=== PATIENT | female | born 2000 | race Caucasian/White ===

== ENCOUNTER 2023-03-28 19:00 | Outpatient (REF) | payer OTHER, SELFPAY ==
[2023-04-01 13:12] LABS: Age Gdln ACOG Testing Note (.); IGP, rfx Aptima HPV ASCU Note (.)
== END 2023-03-28 19:01 | disposition home or self-care (01) ==
LOC: LAB 19:00
PROVIDERS: Visit Provider Obstetrics & Gynecology
DX: Z12.4 Encounter for screening for malignant neoplasm of cervix (principal)
CPT/HCPCS: G0145

== ENCOUNTER 2024-04-09 18:59 | Outpatient (REF) | payer OTHER, SELFPAY ==
--- OUTSIDE RECORDS SUMMARY | 2024-04-09 19:11 | XMS_ITS | CCD ---
Author Organization [facility] Inform ion Partnership [facility] Care Team Providers Care Stamp Classifier Name Role Phone Belle Lopez Unavailable Unavailable NONE, XXXX Unavailable Unavailable Uziel Noe Unavailable Unavailable NONE, XXXX Unavailable Unavailable TMI, DR KHAN Admitting Unavailable TIM, DR KHAN Attending Unavailable TIM, DR KHAN Consulting Unavailable HEBER, PRAMOD Admitting Unavailable HEBER, PRAMOD Attending Unavailable HEBER, PRAMOD Consulting Unavailable HEBER, PRAMOD Admitting Unavailable HEBER, PRAMOD Attending Unavailable HEBER, PRAMOD Consulting Unavailable HEBER, PRAOMD Admitting Unavailable HEBER, PRAMOD Attending Unavailable HEBER, PRAMOD Consulting Unavailable IQRA GRIDER Attending Unavailable ERIN BLANK Attending Unavailable Clementina Marcial MD Primary Care Provider Medications Current Medications Medication Drug Class(es) Dates Sig (Normalized) Sig (Original) Ethinyl Estradiol / Ferrous fumarate / Norethindrone (3 sources) Estrogen Start: 03-28-2023 End: 06-18-2024 norethindrone-ethiny l estradiol (Ericka FE 05/13) 1-20 MG-MCG tablet Indications: Encounter for surveillance of contraceptive pills Take 1 tablet by mouth in the morning. 112 tablet 3 03/28/2023 06/18/2024 Active Problems Active Problems Problem Classification Problem Date Documented Date Episodic/Chronic Immunizations and screening for infectious disease (1 source) Encounter for screening for human papillomavirus (HPV); Translations: [ENC SCREENING HUMAN PAPILLOMAVIRUS] Onset: 03-24-2022 Episodic Other and unspecified benign neoplasm (2 sources) Melanocytic nevus of trunk; Translations: [Melanocytic nevi of trunk] 03-28-2024 Episodic Other circulatory disease (2 sources) Spider nevus; Translations: [Nevus, non-neoplastic] 03-28-2024 Episodic Other inflammatory condition of skin (2 sources) Prurigo nodularis; Translations: [Prurigo nodularis] 03-28-2024 Episodic Other screening for suspected conditions (not mental disorders or infectious disease) (4 sources) Encounter for screening for malignant neoplasm of cervix; Translations: [ENC SCREENING MALIG NEOPLASM CERV] Onset: 03-21-2022 Episodic Other skin disorders (2 sources) Lentiginosis; Translations: [Other melanin hyperpigmentation] 03-28-2024 Episodic Unclassified (3 sources) CONTACT W/AND (SUSP) EXPOS COVID-19; Translations: [CONTACT W/AND (SUSP) EXPOS COVID-19] Onset: 11-25-2021 Viral infection (1 source) COVID-19; Translations: [COVID-19] Onset: 11-09-2021 Past or Other Problems Problem Classification Problem Date Documented Da te Episodic/Chronic Unclassified (1 source) CONTACT W/AND (SUSP) EXPOS COVID-19; Translations: [CONTACT W/AND (SUSP) EXPOS COVID-19] Onset: 11-14-2021 Results Test Name Value Interpretation Reference Range Facility PAP ACOG PANEL 2: 21 to 29on 03-29-2022 . . [facility] Comment on above: Performed By: #### [id number] #### [facility] [address] [place] [address] Dr. Phu Jean Age Gdln ACOG Testing - [facility] Comment on above: Performed By: #### [id number] #### [facility] [address] [address] [address] Phu Jean DIAGNOSIS: Comment [facility] Comment on above: Result Comment: NEGA TIVE FOR INTRAEPITHELIAL LESION OR MALIGNANCY. Performed By: #### [id number] #### [facility] [address] [place] [address] Dr. Phu Jean Methodology: Comment [facility] Comment on above: Result Comment: This liquid based ThinPrep(R) pap test was screened with the use of an image guided system. Performed By: #### 4 [id number] #### [facility] [address] [place] [address] Dr. Phu eJan Note: Comment Normal [facility] Comment on above: Result Comment: The Pap smear is a screening test designed to aid in the detection of premalignant and malignant conditions of the uterine cervix. It is not a diagnostic procedure and should not be used as the sole means of detecting cervical cancer. Both false-positive and false-negative reports do occur. . Performed By: #### 4 [id number] #### [facility] [address] [place] [address] Dr. Phu Jean Performed by: Comment Normal [facility] Comment on above: Result Comment: Colleen Chang, Plastic Tool Maker Performed By: #### 4 [id number] #### [facility] [address] [place] [address] Dr. Phu Jean Reflex Criteria: Comment Normal [facility] Comment on above: Result Comment: The HPV DNA reflex criteria were not met with this specimen result therefore, no HPV testing was performed. . Performed By: #### 4 [id number] #### [facility] [address] [place] [address] Dr. Phu Jean Specimen adequacy: Comment [facility] Comment on above: Result Comment: Sati sfactory for evaluation. No endocervical component is identified. Performed By: #### 4 [id number] #### [facility] [address] [place] [address] Dr. Phu Jean SYMPTOMATIC COVID-19 ANTIGEN on 11-14-2021 EUA Statement SEE BELOW [facility] Comment on above: Result Comment: This test has not been FDA cleared or approved, but has been authorized by the FDA under an Emergency Use Authorization (EUA) for use by authorized laboratories certified under CLIA that meet the requirements to perform moderate or high complexity testing. This test has been authorized only for the detection of proteins from SARS-CoV-2, not for any other viruses or pathogens. The emergency use of this test is authorized for the duration of the declaration that circumstances exist justifying the authorization of emergency use of in vitro diagnostic tests for detection and/or diagnosis of Covid-19 under section 564(b)(1) of the Act, 21 U.S.C. 360bbb-3(b)(1), unless the declaration is terminated or authorization is revoked sooner. Performed By: #### C VDAGS #### [facility] [address] [place] [address] Dr. Phu Jean SARS-CoV-2 (COVID-19) RNA GIA+probe Ql (Unsp spec) Negative Normal NEGATIVE [facility] Comment on above: Performed By: #### C VDAGS #### [facility] [address] [place] [address] Dr. Phu Jean Covid-19 PCR ([facility])on 10-22 SARS-CoV-2 (COVID-19) RNA GIA+probe Ql (Unsp spec) Detected Critically abnormal NOT DETECTED [facility] Comment on above: Result Comment: This test is not yet approved or cleared by the [place] FDA. When there are no FDA-approved or cleared tests available, and other criteria are met, FDA can make tests available under an emergency access mechanism called an Emergency Use Authorization (EUA). The EUA for this test is supported by the Monotype Setter of Health and Human Service's declaration that circumstances exist to justify the emergency use of in vitro diagnostics for the detection and/or diagnosis of the virus that causes COVID-19. This EUA will remain in effect for the duration of the COVID-19 declaration justifying emergency of IVDs, unless it is terminated or revoked by the FDA (after which the test may no longer be used). Performed By: #### C VDTBH #### [facility] [address] [place] [address] Dr. Phu Jean QUANTIFERON TB GOLD PLUSon 0 07-29-2021 QuantiFERON Criteria Comment Normal [facility] Comment on above: Result Comment: The QuantiFERON-TB Gold Plus result is determined by subtracting the Nil value from either TB antigen (Ag) tube. The mitogen tube serves as a control for the test. Performed By: #### Q NTTB #### [facility] [address] [place] [address] Dr. Phu Jean QuantiFERON Incubation Incubation performed. Normal [facility] Comment on above: Performed By: #### Q NTTB #### [facility] [address] [address] [address] Phu Jean QuantiFERON Mitogen Value >10.00 Normal [facility] Comment on above: Performed By: #### Q NTTB #### [facility] [address] [place] [address] Dr. Phu Jean QuantiFERON Nil Value 0.08 IU/mL Normal [facility] Comment on above: Performed By: #### Q NTTB #### [facility] [address] [address] [address] Phu Jean QuantiFERON TB1 Ag Value 0.13 IU/mL Normal [facility] Comment on above: Performed By: #### Q NTTB #### [facility] [address] [place] [address] Dr. Phu Jean QuantiFERON TB2 Ag Value 0.10 IU/mL Normal [facility] Comment on above: Performed By: #### Q NTTB #### [facility] [address] [place] [address] Dr. Phu Jean QuantiFERON-TB Gold Plus Negative Normal Negative [facility] Comment on above: Result Comment: Chem iluminescence immunoassay methodology Performed By: #### Q NTTB #### [facility] [address] [place] [address] Dr. Phu Jean HEPATITIS B SURFACE ANTIBODY , QUANTon 07-28-2021 Hepatitis B Surf AB Quant <3.1 Critically low Immunity>9.9 [facility] Comment on above: Result Comment: Stat us of Immunity Anti-HBs Level Inconsistent with Immunity 0.0 - 9.9 Consistent with Immunity >9.9 Performed By: #### H EPBSRF #### [facility] [address] [place] [address] Dr. Phu Jean MMR IMMUNITYon 07-28-2021 Mumps Abs, IgG 153.0 AU/mL Normal Immune >10.9 [facility] Comment on above: Result Comment: Nega tive <9.0 Equivocal 9.0 - 10.9 Positive >10.9 A positive result generally indicates past exposure to Mumps virus or previous vaccination. Performed By: #### M MRIMMU #### [facility] [address] [place] [address] Dr. Phu Jean Rubella Antibodies, IgG 6.73 index Normal Immune >0.99 [facility] Comment on above: Result Comment: Non- immune <0.90 Equivocal 0.90 - 0.99 Immune >0.99 Performed By: #### M MRIMMU #### [facility] [address] [place] [address] Dr. Phu Jean Rubeola Ab, IgG 212.0 AU/mL Normal Immune >16.4 [facility] Comment on above: Result Comment: Nega tive <13.5 Equivocal 13.5 - 16.4 Positive >16.4 Presence of antibodies to Rubeola is presumptive evidence of immunity except when acute infection is suspected. Performed By: #### M MRIMMU #### [facility] [address] [place] [address] Dr. Phu Jean VARICELLA IGG ABon 2 Varicella Zoster IgG 488 index Normal Immune >165 [facility] Comment on above: Result Comment: Nega tive <135 Equivocal 135 - 165 Positive >165 A positive result generally indicates exposure to the pathogen or administration of specific immunoglobulins, but it is not indication of active infection or stage of disease. Performed By: #### V ARCEL #### [facility] [address] [place] [address] Dr. Phu Jean Encounters Encounter Date Encounter Type Care Provider Facility Start: 03-28-2024 End: 03-28-2024 Office outpatient visit 15 minutes Iqra Grider APRN-BLOOD DONOR UNIT ASSISTANT Work Phone: [facility] Comment on above: Melanocytic nevus of trunk (Primary Dx); Lentigines; Capillary angioma; Prurigo nodularis Start: 03-28-2024 End: 03-28-2024 Bamboo flowsheet Iqra Grider AIRPLANE DISPATCHER-BLOOD DONOR UNIT ASSISTANT Work Phone: [facility] Start: 03-28-2024 End: 03-28-2024 Bamboo flowsheet Iqra Grider AIRPLANE DISPATCHER-BLOOD DONOR UNIT ASSISTANT Work Phone: [facility] Start: 03-28-2023 End: 03-28-2023 ambulatory ERIN BLANK Not Available Start: 03-27-2023 End: 03-27-2023 ambulatory IQRA GRIDER Not Available Start: 03-21-2022 End: 03-21-[address] ERIN BLANK Facility:[facility] Start: 11-14-2021 End: 11-15-2021 ambulatory PRAMODELIOT BUCK Facility:[facility] Start: 11-09-2021 End: 11-09-2021 ambulatory PRAMOD BUCK Facility:[facility] Start: 07-27-2021 End: 07-27-2021 ambulatory PRAMOD BUCK Facility:[facility] Start: 05-24-2017 End: 05-25-2017 Ambulatory Uziel Noe Facility:[id number] Plan of Treatment Date Care Activity Detail Author Start: 03-31-2025 End: 03-31-2025 Patient encounter procedure 03/31/2025 3:05 PM EST Office Visit [facility] [address] [place] [address] Iqra Grider, AIRPLANE DISPATCHER-BLOOD DONOR UNIT ASSISTANT [address] [place] [address] [facility] Start: 04-08-2024 End: 04-08-2024 Patient encounter procedure 04/08/2024 2:00 PM EST Office Visit [facility] [address] [place] [id number] Erin Blank, DO [address] [place], [place] [address] [facility] Start: 03-28-2024 End: 03-28-2024 Patient encounter procedure 03/28/2024 3:10 PM EST Office Visit [facility] [address] [place] [address] Iqra Grider, AIRPLANE DISPATCHER-BLOOD DONOR UNIT ASSISTANT [address] [place] [address] Arrived [facility] Comment on above: Arrived Start: 12-24-2023 Influenza vaccination Influenza Vacc ine (#1) [facility] Payers Date Payer Category Payer Private Health Insurance [facility] [id number] 1999 Unknown [id number] 1999 Unknown [id number] 1999 Unknown [id number] .[id number] 1999 Unknown [id number] .[id number] 1999 Unknown [id number] 1959 Self-pay 1959 Unknown [id number] Unknown [id number] Social History Date Type Detail Facility Start: 03-15-2023 Tobacco smoking stat [facility] Never smoked tobacco [facility] Start: 03-15-2023 Tobacco use and exposure Smoke less tobacco non-user [facility] Start: 03-28-2023 End: 03-28-2024 Alcoholic beverage intake Lifetime non-drinker (finding) [facility] Start: 03-28-2023 End: 03-28-2024 History of Social function [facility] Start: 03-28-2023 End: 03-28-2024 Tobacco use panel [facility] Start: 2000 Sex assigned at Not on file [facility] History of Present illness Narrative 03-28-2024 Iqra Alejo Cheo, ZAKIYA-BLOOD DONOR UNIT ASSISTANT - 03/28/2024 3:10 PM EST Note Date & Type Note Facility 03-28-2024 History of Presen t illness Narrative Skin Check Location: Patient requests a full body skin examination Dermatologic history: no history of skin cancer, family history of melanoma(grandma), history of sebaceous nevus on scalp as a child Last visit: 1 year ago Established patient All pertinent medical history, medications, and allergies were reviewed. General Exam: alert, oriented to person, place, and time, normal affect, well appearing Unaccompanied Areas not examined despite medical recommendation: Scalp, Examined Right leg Examined Head, Face Examined Left leg Examined Neck Examined Right foot Examined Chest Examined Left foot Examined Back Examined Buttocks Examined Abdomen Examined Digits,nails: Examined Right arm Examined Left arm Examined Lymphatics: Not examined Hands Examined 1. Melanocytic nevus of trunk (3) Arms, Head, Trunk Scattered benign appearing, regular brown to light brown melanocytic papules and macules with similar morphology Counseled regarding these benign growths. Rarely, a nevus can develop into malignant melanoma, so any changing nevi should be promptly re-evaluated. 2. Lentigines (2) Head - Anterior (Face), Trunk Scattered maier macules in sun-exposed areas. The patient was informed that lentigines are benign pigmented lesions that occur on sun-exposed and sun-damaged skin. No treatment is necessary. Recommended regular use of broad spectrum sunscreen SPF 30 or higher 3. Capillary angioma Scattered davis-red papule(s). The patient was informed that angiomas are benign growths on the the skin. No treatment is necessary. 4. Prurigo nodularis Right Breast Scattered lichenified excoriated nodules. Patient counseled on prurigo nodularis. Instructed to refrain from scratching or picking itchy bumps on skin. Educational handout given. Follow up with OBGYN if not resolved in 2 months, patient reports she has an [facility] appointment coming up in 2 weeks. 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 documented in this encounter [facility] Summary Purpose Family History No Family History Records FoundNo Family History Records FoundNo Family History Records Found Advance Directives No Advanced Directives Records FoundNo Advanced Directives Records FoundNo Advanced Directives Records Found Additional Source Comments INFORMATION SOURCE (unrecogn ized section and content) DATE CREATED AUTHOR 10/16/2017 [facility] DATE CREATED AUTHOR AUTHOR'S ORGANIZ ATION 03/30/2022 [facility] DATE CREATED AUTHOR AUTHOR'S ORGANIZ ATION 03/29/2023 [facility] dical Specialists EPIC Care Teams (unrecognized sec tion and content) Stamp Classifier Relationship Specialty Start Date End Date Clementina Marcial MD [address] [place] [address] PCP - General 03/20/23 Stamp Classifier Relationship Specialty Start Date End Date Clementina Marcial MD [address] [place] [address] PCP - General 03/20/23 FOR RECORDS PERTAINING TO PATIENTS WHO ARE OR HAVE BEEN ENROLLED IN A CHEMICAL DEPENDENCY/SUBSTANCEABUSE PROGRAM, SOME INFORMATION MAY BE OMITTED. This clinical summary was aggregated from multiple sources. Caution should be exercised in using it in the provision of clinical care. This summary normalizes information from multiple sources, and as a consequence, information in this document may materially change the coding, format and clinical context of patient data. In addition, data may be omitted in some cases. CLINICAL DECISIONS SHOULD BE BASED ON THE PRIMARY CLINICAL RECORDS. [facility] provides no warranty or guarantee of the accuracy or completeness of information in this document.
[2024-04-18 11:08] LABS: Age Gdln ACOG Testing Note (.); IGP, rfx Aptima HPV ASCU Note (.)
== END 2024-04-09 19:00 | disposition home or self-care (01) ==
LOC: LAB 18:59
PROVIDERS: Visit Provider Obstetrics & Gynecology
DX: Z01.419 Encounter for gynecological examination (general) (routine) without abnormal findings (principal)
CPT/HCPCS: 88175

== ENCOUNTER 2025-04-14 20:47 | Outpatient (REF) | payer BC, SELFPAY ==
--- OUTSIDE RECORDS SUMMARY | 2025-04-14 15:00 | XMS_ITS | Encounter Summary ---
Author Organization [facility] Address [address] [place] [address] Care Team Providers Care Gasoline Engine Inspector Name Role Phone Clementina Marcial MD Primary Care Provider [phone] Reason for Visit * ReasonCommentsWell Women Visit Encounter Details DateTypeDepartmentCare Team (Latest Contact Info)Uddsnfnnynn86/22/2025 3:00 PM ESTOffice Visit [facility] [address] [place] [address] Moises Blank DO [address] [place] [address] Well woman exam with routine gynecological exam; Encounter for surveillance of contraceptive pills Social History Tobacco UseTypesPacks/DayYears UsedDateSmoking Tobacco: NeverSmokeless Tobacco: NeverAlcohol UseStandard Drinks/WeekCommentsNever0 (1 standard drink = 0.6 oz pure alcohol)CommentsUnknownSex and Gender InformationValueDate Recorded Sex Assigned at BirthNot on fileLegal JvxThehpk62/15/2023 11:17 PM EDTGender IdentityNot on fileSexual OrientationNot on filedocumented as of this encounter Last Filed Vital Signs Vital SignReadingTime TakenCommentsBlood Wchxebwa793/7004/14/2025 2:52 PM EST Pulse--Temperature--Respiratory Rate--Oxygen Saturation--Inhaled Oxygen Concentration--Eyipcf61 kg (138 lb 12.8 oz)04/14/2025 2:52 PM ESTHeight--Body Mass Index24.5903/21/2022 12:00 PM ESTdocumented in this encounter Plan of Treatment DateTypeDepartmentCare Team (Latest Contact Info)Uicunskqtrl27/09/2026 1:00 PM ESTOffice Visit [facility] [place] [facility] [address] [place] [address] Iqra Grider APRN-ELECTRICAL MANUFACTURING TECHNICIAN [address] [place] [address] 04/29/2026 2:00 PM ESTProcedure Visit [facility] [address] [place] [address] Moises Blank DO [address] [place], [place] [id number] NameTypePriorityAssociated DiagnosesOrder SchedulePap SmearPathology and CytologyRoutine Well woman exam with routine gynecological exam Ordered: 04/14/2025documented as of this encounter Visit Diagnoses Diagnosis Well woman exam with routine gynecological exam Routine gynecological examination Encounter for surveillance of contraceptive pills documented in this encounter Care Teams Team MemberRelationshipSpecialtyStart DateEnd Date Clementina Marcial MD [address] [place] [address] PCP - Unwomxj02/27/23documented as of this encounter
--- OUTSIDE RECORDS SUMMARY | 2025-04-14 20:51 | XMS_ITS | Clinical Summary ---
Author Organization [facility] Address [address] [place], [place] [id number] Care Team Providers Care Edge Worker Name Role Phone Clementina Marcial MD Primary Care Provider [phone] Allergies No known active allergies Medications MedicationSigDispense QuantityRefillsLast FilledStart DateEnd DateStatus spironolactone (ALDACTONE) 50 mg tablet Indications:Hyperandrogenemia,HirsutismTAKE 1 TABLET BY MOUTH 2 TIMES A DAY 60 tablet Active Active Problems ProblemNoted DateDiagnosed BiutLzxbjmiapinujlbyv81/13/2017 Social History Tobacco UseTypesPacks/DayYears UsedDateSmoking Tobacco: NeverSmokeless Tobacco: NeverCommentsUnknownSex and Gender InformationValueDate RecordedSex Assigned at BirthNot on fileLegal XfhApzifv23/21/2017 3:17 PM EDTGender Identity Not on fileSexual OrientationNot on file Last Filed Vital Signs Vital SignReadingTime TakenCommentsBlood Glawkkpi050/50009/26/2016 12:44 PM EDT Hqqqc34876/05/2017 12:44 PM EDTTemperature--Respiratory Rate--Oxygen Saturation- -Inhaled Oxygen Concentration--Oggzpk43.1 kg (130 lb 4.7 oz)09/26/2016 12:44 PM JKMNvbblg262.7 cm (5' 2.09 )09/26/2016 12:44 PM EDTBody Mass Index23.76 09/26/2016 12:44 PM EDT Plan of Treatment Health MaintenanceDue DateLast DoneCommentsPeds To Adult Transition Initial Ynuqsopvor77/04/2011Peds To Adult Transition Annual Dygqysuomf82/04/2013HPV Vaccine (1 - 3-dose series)2014nxiety Deezknrwr82/04/2017Depression Liwkijbre35/04/2017HIV Axmysdywf24/04/2017Hepatitis C Czvjbamai95/04/2017 DTaP,Tdap,Td Vaccine (1 - Tdap)2018Hepatitis B Vaccine (1 of 3 - 19+ 3- dose series)2018Cervical Cancer Jipdyjmct97/04/2020Covid-19 Vaccine (1 - 2024- season)2024Influenza Vaccine (#1)2024 Insurance Care Teams Team MemberRelationshipSpecialtyStart DateEnd Date Clementina Marcial MD [address] [facility] [place] [address] PCP - GeneralFamily Medicine08/12/16
--- OUTSIDE RECORDS SUMMARY | 2025-04-14 20:51 | XMS_ITS | Encounter Summary ---
Author Organization [facility] Address [address] [facility] [place] [address] Care Team Providers Care Facility Operations Manager Name Role Phone Clementina Marcial MD Primary Care Provider [phone] Encounter Details DateTypeDepartmentCare Team (Latest Contact Info)Sqtaobicylg57/22/2025amboo flowsheet [facility] [address] [facility] [facility] [address] Moises Blank DO [address] [facility] [address] [place], [facility] Social History Tobacco UseTypesPacks/DayYears UsedDateSmoking Tobacco: NeverSmokeless Tobacco: NeverAlcohol UseStandard Drinks/WeekCommentsNever0 (1 standard drink = 0.6 oz pure alcohol)CommentsUnknownSex and Gender InformationValueDate Recorded Sex Assigned at BirthNot on fileLegal BjhDhhovx42/15/2023 11:17 PM EDTGender IdentityNot on fileSexual OrientationNot on filedocumented as of this encounter Plan of Treatment DateTypeDepartmentCare Team (Latest Contact Info)Ovmpfvexfcd18/09/2026 1:00 PM ESTOffice Visit [facility] [address] [place] [phone] Iqra Grider, LOADER OPERATOR-RAWHIDE BONE ROLLER [address] [place] [address] 04/29/2026 2:00 PM ESTProcedure Visit [facility] [address] [facility] [address] Moises Blank DO [address] [facility] [place] [address] documented as of this encounter Visit Diagnoses Not on filedocumented in this encounter Care Teams Team MemberRelationshipSpecialtyStart DateEnd Date Clementina Marcial MD [address] [facility] [place] [address] PCP - Apwkskw12/27/23documented as of this encounter
--- OUTSIDE RECORDS SUMMARY | 2025-04-14 20:51 | XMS_ITS | Encounter Summary ---
Author Organization [facility] Address [address] [place] [address] Care Team Providers Care Health Program Manager Name Role Phone Clementina Marcial MD Primary Care Provider [phone] Encounter Details DateTypeDepartmentCare Team (Latest Contact Info)Zkmotquzpgd41/15/2025Travel Social History Tobacco UseTypesPacks/DayYears UsedDateSmoking Tobacco: NeverSmokeless Tobacco: NeverAlcohol UseStandard Drinks/WeekCommentsNever0 (1 standard drink = 0.6 oz pure alcohol)CommentsUnknownSex and Gender InformationValueDate Recorded Sex Assigned at BirthNot on fileLegal FssLyvzuc96/15/2023 11:17 PM EDTGender IdentityNot on fileSexual OrientationNot on filedocumented as of this encounter Plan of Treatment DateTypeDepartmentCare Team (Latest Contact Info)Pziacqjipgm82/09/2026 1:00 PM ESTOffice Visit [facility] [address] [place] [phone] Iqra Grider, CREDIT RISK ANALYST-SALES ACCOUNT REPRESENTATIVE [address] [place] [address] 04/29/2026 2:00 PM ESTProcedure Visit [facility] [address] [facility] [place] [address] Moises Blank, [address] [place] [address] documented as of this encounter Visit Diagnoses Not on filedocumented in this encounter Care Teams Team MemberRelationshipSpecialtyStart DateEnd Date Clementina Marcial MD [address] [place] [address] PCP - Yfvxtvw36/27/23documented as of this encounter
--- OUTSIDE RECORDS SUMMARY | 2025-04-14 20:51 | XMS_ITS | Clinical Summary ---
Author Organization [facility] Address [address] [place] [address] Care Team Providers Care Aviation Ordnance Officer Name Role Phone Clementina Marcial MD Primary Care Provider [phone] Allergies No known active allergies Medications MedicationSigDispense QuantityRefillsLast FilledStart DateEnd DateStatus norethindrone-ethinyl estradiol ([facility] 05/13) 1-20 MG-MCG tablet Indications:Encounter for surveillance of contraceptive pillsTake 1 tablet by mouth Daily 84 tablet 503/6Active azithromycin (Zithromax Z-Dale) 250 MG tablet Indications:Sinusitis, unspecified chronicity, unspecified locationAs directed 6 tablet Discontinued norethindrone-ethinyl estradiol ([facility] 05/13) 1-20 MG-MCG tablet Indications:Encounter for surveillance of contraceptive pillsTake 1 tablet by mouth Daily 84 tablet Discontinued(Reorder) Active Problems No known active problems Encounters DateTypeDepartmentCare QdajXxfyfassicx59/22/2025 3:00 PM ESTOffice Visit [facility] [address] [place] [address] Moises Blank, Well woman exam with routine gynecological exam; Encounter for surveillance of contraceptive pills04/14/2025amboo flowsheet [facility] [address] [facility] [place] [address] Moises Blank DO 04/07/20258413Disidx05/04/2025 3:05 PM ESTOffice Visit [facility] [address] [facility] [facility] [address] [place] [address] Iqra Grider APRN-CNP Melanocytic nevus of trunk (Primary Dx); Melanocytic nevus of scalp; Melanocytic nevus of skin of both upper extremities; Lentigines; Common wart104/27/2024amboo flowsheet [facility] [address] [facility] [facility] [address] [place] [address] Iqra Grider APRN-CNP 02/25/20253510Nebnjm78/01/2025Travelfrom Last 3 Months Social History Tobacco UseTypesPacks/DayYears UsedDateSmoking Tobacco: NeverSmokeless Tobacco: Never Tobacco Cessation:Counseling Given: Not Answered Alcohol UseStandard Drinks/WeekCommentsNever0 (1 standard drink = 0.6 oz pure alcohol)CommentsUnknownSex and Gender InformationValueDate RecordedSex Assigned at BirthNot on fileLegal QhvDumjah30/15/2023 11:17 PM EDTGender IdentityNot on fileSexual OrientationNot on file Last Filed Vital Signs Vital SignReadingTime TakenCommentsBlood Ptgijvuo879/7004/14/2025 2:52 PM EST Pulse--Temperature--Respiratory Rate--Oxygen Saturation--Inhaled Oxygen Concentration--Lnzocq05 kg (138 lb 12.8 oz)04/14/2025 2:52 PM HOSFnftcd290 cm (5' 3 )03/21/2022 12:00 PM ESTBody Mass Index24.5903/21/2022 12:00 PM EST Plan of Treatment DateTypeDepartmentCare Team (Latest Contact Info)Lgthhmyvcnq65/09/2026 1:00 PM ESTOffice Visit [facility] [address] [facility] [facility] [address] [place] [address] Iqra Grider APRN-CNP [address] [facility] [address] [place] [address] 04/29/2026 2:00 PM ESTProcedure Visit [facility] [address] [facility] [place] [address] Moises Blank DO [address] [facility] [place] [address] Health MaintenanceDue DateLast DoneCommentsInfluenza LbxxhtaLpfkkadfl86/25/2025, 01/25/2024, 01/16/2020Pneumococcal Vaccine: Pediatrics (0 to 5 Years) and At- Risk Patients (6 to 64 Years)Aged OutNo longer eligible based on patient's age to complete this topic Insurance * Guarantor: Monika Sanchez TypeRelation to PatientDate of PhoneBilling AddressPersonal/XktpizDfmk[id number] [place] [phone] Care Teams Team MemberRelationshipSpecialtyStart DateEnd Date Clementina Marcial MD [address] [facility] [place] [address] PCP - Ppnpktm62/27/23
[2025-04-16 16:08] LABS: Age Gdln ACOG Testing Note (.); IGP, rfx Aptima HPV ASCU Note (.)
== END 2025-04-14 20:48 | disposition home or self-care (01) ==
LOC: LAB 20:47
PROVIDERS: Visit Provider Obstetrics & Gynecology
DX: Z01.419 Encounter for gynecological examination (general) (routine) without abnormal findings (principal)
CPT/HCPCS: 88175